=== PATIENT | male | born 1980 | race Caucasian/White ===

== ENCOUNTER 2019-07-13 19:04 | Emergency (ER) | payer SELFPAY ==
[~2019-07-13] VITALS: Ht 176.5 cm; Wt 98.9 kg
[2019-07-13 19:14] VITALS: BP 133/81
--- NOTE | 2019-07-13 19:18 | NUR ---
PT TO WAIT IN ER LOBBY. VSS. [id number]
--- NOTE | 2019-07-13 23:50 | NUR ---
PATIENT CALLED TO PUT ON BED , NO RESPONSE PATIENT LEFT WITHOUT BEING SEEN BY DR. WALDROP. NO FURTHER CARE PROVIDED FOR PATIENT.
--- NOTE | 2019-07-13 23:55 | NUR ---
CALLED FOR THE SECOND TIME NO RESPONSE
--- NOTE | 2019-07-14 | NUR ---
CALLED FOR THE THIRD TIME NO RESPONSE
== END 2019-07-13 23:55 | disposition left against medical advice (07) ==
LOC: MED 19:04
DX: R06.02 Shortness of breath (principal); Z53.21 Procedure and treatment not carried out due to patient leaving prior to being seen by health care provider

== ENCOUNTER 2020-05-04 11:03 | Emergency (ER) | payer SELFPAY ==
[~2020-05-04] VITALS: Ht 177.8 cm; Wt 104.3 kg
[2020-05-04 11:04] VITALS: BP 145/76
--- NOTE | 2020-05-04 11:10 | NUR ---
PT WHEELCHAIRED TO ER BED 07
--- NOTE | 2020-05-04 11:15 | NUR ---
C/O BACK PAIN AFTER FALLING FROM LADDER TO GROUND APPROX 6 FEET X 3 DAYS. DENIES LOC.AOX4 , AFIBRILE , AMBULATORY WITH ASSISTANCE , LIMITATTION OF ROM OF BOTH LEGS PAIN UPON MOVEMENT. MED HX: DENIES
--- NOTE | 2020-05-04 11:18 | NUR ---
DR ZEE AT BEDSIDE EVALUATING PT.
[2020-05-04] MEDS ORDERED: DIAZEPAM 5 MG TAB PO ONE (11:20)
[2020-05-04] MEDS ORDERED: KETOROLAC 60 MG/2 ML VIAL IM ONE (11:20)
--- NOTE | 2020-05-04 11:30 | NUR ---
CONFIRMED WITH DR ZEE REGARDING VALIUM PO FOR PT.
--- NOTE | 2020-05-04 11:37 | NUR ---
PT TO CT SCAN VIA [facility] [facility].
--- NOTE | 2020-05-04 11:51 | NUR ---
PT BACK FROM CT SCAN VIA [facility] . SIDE RAILS UP AND LOCK.
[2020-05-04 13:07] VITALS: BP 124/66
--- NOTE | 2020-05-04 13:08 | NUR ---
Patient discharged with v/s stable. Written and verbal after care instructions given and explained. Patient alert, oriented and verbalized understanding of instructions. Ambulatory with steady gait. All questions addressed prior to discharge. ID band removed. Patient advised to follow up with PMD. Rx of NORCO, MOTRIN given. Patient educated on indication of medication including possible reaction and side effects. Opportunity to ask questions provided and answered.
== END 2020-05-04 13:08 | disposition home or self-care (01) ==
LOC: MED 11:03
DX: S30.22XA Contusion of scrotum and testes, initial encounter (principal); S30.0XXA Contusion of lower back and pelvis, initial encounter; W11.XXXA Fall on and from ladder, initial encounter; Y93.89 Activity, other specified; Y92.89 Other specified places as the place of occurrence of the external cause; Y99.8 Other external cause status
CPT/HCPCS: 72131; 72192; 96372; 99285; J1885

== ENCOUNTER 2020-09-18 20:16 | Emergency (ER) | payer OTHER ==
[~2020-09-18] VITALS: Ht 177.8 cm; Wt 102.5 kg
[2020-09-18 20:20] VITALS: BP 160/81
[2020-09-18] MEDS: KETOROLAC 30 MG/ML VIAL IM ONE (20:45)
[2020-09-18 21:35] VITALS: BP 160/81
== END 2020-09-18 21:35 | disposition home or self-care (01) ==
LOC: MED 20:16
DX: M54.5 Low back pain (principal); V89.2XXA Person injured in unspecified motor-vehicle accident, traffic, initial encounter; Y93.89 Activity, other specified; Y92.89 Other specified places as the place of occurrence of the external cause; Y99.8 Other external cause status
CPT/HCPCS: 72110; 96372; 99283; J1885